=== PATIENT | male | born 1970 | race Caucasian/White ===

== ENCOUNTER → 2018-04-14 | Outpatient (CLI) | payer OTHER ==
[~2018-04-14] MED LIST: IOPAMIDOL 76% 150 ML INFUS BTL 150 ML ONE; LEVO-85 PO; METR500T54 PO; NS(*) 0.9% 50 ML BAG 50 ML ONE
--- NOTE | 2018-04-14 12:28 | RADIOLOGY IMAGING REPORT ---
FACILITY: [facility] PATIENT NAME: Adebayo Minaya : 1970 MR: [id number] V: [id number] EXAM DATE: ORDERING PHYSICIAN: SHAAN FRAZIER TECHNOLOGIST: Location: [facility] [place] Patient: Adebayo Minaya : 1970 Visit/Account:[id number] Date of Sevice: 04/14/2018 ADDENDUM #1 Results were called to Dr. SHAAN FRAZIER at 04/14/2018 1:01 PM. Report Dictated By: Rubens Thompson MD at 04/14/2018 1:00 PM Report E-Signed By: Rubens Thompson MD at 04/14/2018 1:[address] abdomen and pelvis with and without contrast. Indication: Hematuria Comparison: None available. . Technique: Axial CT images were obtained through the abdomen and pelvis during injection of nonioni c iodinated intravenous contrast. Reformatted coronal and sagittal images were also obtained. Pre con trast and delayed images were also obtained. Contrast: 80 ml of Isovue-370 IV contrast. One of the following dose optimization techniques was utilized in the performance of this exam: Autom ated exposure control; adjustment of the mA and/or kV according to the patient's size; or use of an i terative reconstruction technique. Specific details can be referenced in the facility's radiology C T exam operational policy. Findings: Noncontrast CT examination: Lung bases are clear. Symmetric mild perinephric stranding without evidence of urolithiasis. Postcontrast eight minute delay The post contrast imaging of the liver, gallbladder, spleen, adrenal glands, stomach and pancreas are without acute finding. Evaluation of the small and large intestine demonstrates diverticular change s of the descending and sigmoid colon. There is periintestinal inflammatory change at the distal holly cending colon/proximal sigmoid colon indicative of diverticulitis. No drainable fluid collection or abscess. There is a trace amount of free air. Incidental note is made of a fat-containing periumbilical hernia. Renal: Pre and postcontrast images demonstrate enhancing renal or urothelial mass/lesion. The bladde r is without concerning mass. Incidental note is made of a small patent urachal diverticulum. Spondylotic changes are seen in the spine, greatest at L5-S1. No evidence of acute bony finding. There is a enlarged 10 mm left external iliac node adjacent to the acute diverticulitis. IMPRESSION: 1. CT pyelogram with and without contrast demonstrates no evidence of urolithiasis, mass or underlyi ng urothelial lesion. 2. Diverticular changes of the descending and sigmoid colon with kofi-intestinal inflammatory change at the interface of the descending and sigmoid colon indicative of acute diverticulitis. Trace amou nt of free air without evidence of drainable fluid collection or abscess. 3. Incidental findings as above. Report Dictated By: Rubens Thompson MD at 04/14/2018 11:56 AM Report E-Signed By: Rubens Thompson MD at 04/14/2018 12:24 PM WSN:[email or web address]
== END ==
LOC: CT 00:34
DX: K57.53 Diverticulitis of both small and large intestine without perforation or abscess with bleeding (principal); R31.1 Benign essential microscopic hematuria
CPT/HCPCS: 74178; J7050; Q9967

== ENCOUNTER 2018-06-17 02:43 | Day surgery (SDC) | payer OTHER ==
[2018-06-17] VITALS (7 sets, daily range): BP systolic 101–127; BP diastolic 66–82
[~2018-06-17] VITALS: Ht 188 cm; Wt 147.9 kg
[~2018-06-17 02:43] MED LIST changes: +ACET-3017 PO; +ALB18R INH; +FAMO20TA28 PO; -IOPAMIDOL 76% 150 ML INFUS BTL 150 ML ONE; +METR500T15 PO; -METR500T54 PO; -NS(*) 0.9% 50 ML BAG 50 ML ONE
[2018-06-17] MEDS ORDERED: MIDAZOLAM 2 MG/2 ML VIAL IVP PRN (06:45)
[2018-06-17] MEDS ORDERED: NORMOSOL R SOLN(*) 1000 ML BAG 1,000 ML IV PRN (06:45)
[2018-06-17] MEDS ORDERED: LIDOCAINE/SOD BICARB 8.4% SYR ID ONE (06:45)
[2018-06-17] MEDS ORDERED: ceFAZolin(*) 1 GM VIAL 3 GM in NS(*) 0.9% 100 ML BAG 100 ML IVPB ONE (06:45)
[2018-06-17] MEDS ORDERED: DEXAMETHASONE SOD 4 MG/ML VIAL ONE ×2 (07:20→07:53)
[2018-06-17] MEDS ORDERED: ROCURONIUM BROM 10 MG/ML 10 ML ONE (07:20)
[2018-06-17] MEDS ORDERED: fentaNYL CITR 250 MCG/5 ML AMP ONE (07:20)
[2018-06-17] MEDS ORDERED: LIDOCAINE MPF 1% 5 ML VIAL ONE (07:20)
[2018-06-17] MEDS ORDERED: SUGAMMADEX SOD 200 MG/2 ML SDV ONE ×2 (07:20→07:21)
[2018-06-17] MEDS ORDERED: ONDANSETRON 4 MG/2 ML VIAL ONE (07:20)
[2018-06-17] MEDS ORDERED: PROPOFOL EMUL(*) 10MG/ML 20 ML 20 ML ONE ×2 (07:20→07:21)
[2018-06-17] MEDS ORDERED: ROPIVACAINE 0.5% 20 ML VIAL ONE (07:27)
[2018-06-17] MEDS ORDERED: KETAMINE HCL 200 MG/20 ML MDV ONE (07:29)
[2018-06-17] MEDS ORDERED: NEOMYCIN/POLYMYX/BACITR 30 GM TP ONE (08:48)
[2018-06-17] MEDS ORDERED: fentaNYL CITR 100 MCG/2 ML AMP ONE (09:08)
[2018-06-17] MEDS ORDERED: OXYC-854 PO (09:14)
[2018-06-17] MEDS ORDERED: DOCU-202 PO (09:14)
--- NOTE | 2018-06-17 09:17 | Short(Outpt) Discharge Summary ---
Discharge Summary Reason for Hosp/Final Diag: (1) Umbilical hernia Status: Chronic Hospital Course & Plan: UH repair with mesh completed without problems. Departure Discharge to: Home, Self Care Discharge Instructions Home Meds Active Scripts Docusate Sodium (DOCUSATE SODIUM) 100 Mg Capsule, 1 CAP PO BID, #60 CAPSULE 0 Refills Prov:GIOVANI ROBERTS MD 06/17/18 Oxycodone Hcl/Acet 5/325 Mg (ENDOCET 5-325 TABLET) 1 Each Tablet, 1 TAB PO Q4H PRN for PAIN, #20 TAB 0 Refills Prov:GIOVANI ROBERTS MD 06/17/18 Reported Medications Famotidine (PEPCID) 20 Mg Tablet, 20 MG PO BID, #10 TAB 06/15/18 Levofloxacin 500 Mg Tab (LEVAQUIN 500 MG TAB) 500 Mg Tablet, 500 MG PO QDAY, #10 TAB 06/07/18 Albuterol Sulfate (VENTOLIN HFA) 18 Gm Inh, 1-2 PUFF INH PRN PRN for WHEEZING, INH 05/21/18 Discontinued Reported Medications Famotidine (PEPCID) 20 Mg Tablet, 20 MG PO BID, #10 TAB 06/07/18 Acetaminophen With Codeine # 3 (TYLENOL WITH CODEINE #3 TABLET) 1 Each Tablet, 1 EACH PO Q4-6H PRN for PAIN, #10 TAB 06/07/18 Follow up Referrals: General Surgery - 07/07/18 @ Surgery, General with GIOVANI ROBERTS MD You have a follow up appointment scheduled with Dr. Roberts on 07/07/18, at 4:00pm. Diet: Regular Activity: No Heavy Lifting Special Instructions: You may remove the white surgical dressing on 06/19/18, then you can shower. After showering, leave the incision open to air but leave the steristrips in place until they fall off on their own. Do not immerse the incision for 2 weeks. Avoid any activity that involves straining or lifting more than 10 pounds for 6 weeks after surgery. Problem Qualifiers (1) Umbilical hernia: Obstruction and gangrene presence: without obstruction or gangrene Qualified Codes: K42.9 - Umbilical hernia without obstruction or gangrene GIOVANI ROBERTS MD Jun 17, 2018 09:17
--- NOTE | 2018-06-17 09:23 | Post Operative Progress Note ---
Post Operative Progress Note Date: Jun 17, 2018 Time: 09:18 Surgeon: Melany Dictation number: [id number] Anesthesia: LMA provided by Dr. Chambers Pre-Op Diagnosis: UH Post-Op Diagnosis: JENNYFER Findings: 1.5cm fascial defect, repaired with 4.3cm C-qur mesh Procedure(s): UHR with mesh Specimen Removed:(May be N/A): None Complications: None Fluids: See anesthesia record Estimated Blood Loss: Minimal Date OP Note Dictated: Jun 17, 2018 Time OP Note Dictated: 09:19 GIOVANI ROBERTS MD Jun 17, 2018 09:23
--- NOTE | 2018-06-17 09:54 | OPERATIVE REPORT 1 ---
EVENT DATE: June 17, 2018 SURGEON: Min Mosley M.D. ANESTHESIOLOGIST: Kirby Monroy MD ANESTHESIA: LMA. PREOPERATIVE DIAGNOSIS Umbilical hernia. POSTOPERATIVE DIAGNOSIS Umbilical hernia. PROCEDURE PERFORMED Umbilical hernia repair with mesh. COMPLICATIONS None. CONDITION Stable. ESTIMATED BLOOD LOSS Minimal. FINDINGS Patient had a 1.5 cm fascial defect, which I repaired with a 4.3 cm round piece of C-QUR mesh. INDICATIONS This is a 47-year-old gentleman who had a bulge in his umbilicus that he thought was slowly getting bigger and causing discomfort. He was requesting to have it repaired. DESCRIPTION OF PROCEDURE The patient was brought to the operating room, placed supine on the operating table. LMA anesthesia was administered and his abdomen was prepped and draped in sterile fashion. Time out was completed and I injected the skin and the supraumbilical rim with 0.5% ropivacaine plain. I made a frowny-face incision in the superior umbilical rim. I dissected through the dermis and subcutaneous fat and dissected down into the deeper tissues and then dissected around the umbilical stalk and then elevated the umbilicus from the underlying fascia. I then identified the hernia and dissected all the way around the hernia down to the fascia and then amputated the hernia sac and closed the resulting peritoneal defect with running 3-0 Vicryl sutures and then creased a preperitoneal subfascial plane circumferentially around the fascial defect and then inserted a 4.3 round piece of C-QUR mesh into the preperitoneal space, cut off the tails and the closed the fascial defect overlying the mesh with interrupted 0 Ethibond sutures and I included the mesh in some of the Ethibond sutures to secure it into place. I then irrigated and dried the wound, tacked the umbilicus down with single 3-0 Vicryl suture and then closed the skin with 4-0 Monocryl and subcuticular suture. The skin was then cleaned and dried and Steri-Strips applied to the incision. I packed his umbilicus with antibiotic-laden 2 x 2 gauze and then placed a sterile surgical dressing over the entire umbilicus and incision. This patient was awakened and LMA removed. He was transferred to the recovery room in stable condition, having tolerated the procedure without any apparent problems. REJI
== END 2018-06-17 10:00 | disposition home or self-care (01) ==
LOC: OR 02:43
PROVIDERS: ATTEND Surgery
DX: K42.9 Umbilical hernia without obstruction or gangrene (principal)
CPT/HCPCS: 49585; 94667; J0690; J1100; J2001; J2250; J2405; J2704; J2795; J3010; J3490; J7050; C1781